=== PATIENT | female | born 1975 | race Caucasian/White ===

== ENCOUNTER 2023-06-13 04:30 | Emergency (ER) | payer MEDICAID ==
[~2023-06-13] VITALS: Ht 162.6 cm; Wt 90.7 kg
[2023-06-13 04:47] VITALS: BP 120/71; PULSE 100; RESP 20; TEMP 100.8; O2SAT 98
[2023-06-13] MEDS ORDERED: PRED20TA5 PO (04:57)
[2023-06-13] MEDS ORDERED: IBUP-1842 PO (04:57)
[2023-06-13] MEDS ORDERED: ALBU0.0912 INH (04:57)
[2023-06-13] MEDS: ACETAMINOPHEN EXTRA STRENGTH 500 MG TAB PO ONE (05:19)
[2023-06-13] MEDS: DEXAMETHASONE 10 MG/ML VIAL PO ONE (05:20)
[2023-06-13] MEDS: ALBUTEROL SULFATE/IPRATROPIU 3 ML SOL IH ONE (05:29)
[2023-06-13 05:31] VITALS: PULSE 99; RESP 20; O2SAT 97
[2023-06-13 05:45] LABS: FLU A ANTIGEN negative (NEGATIVE); FLU B ANTIGEN NEGATIVE (NEGATIVE)
[2023-06-13 06:09] VITALS: BP 134/82; PULSE 96; RESP 20; TEMP 100.6; O2SAT 97
== END 2023-06-13 06:09 | disposition home or self-care (01) ==
LOC: MED 04:30
DX: J45.901 Unspecified asthma with (acute) exacerbation (principal); Z20.822 Contact with and (suspected) exposure to COVID-19; B34.9 Viral infection, unspecified; Z79.899 Other long term (current) drug therapy
CPT/HCPCS: 87426; 87804; 94640; 99283; J1100